=== PATIENT | male | born 1950 | race Caucasian/White ===

== ENCOUNTER 2017-01-11 07:30 | Inpatient (IN) | payer MEDICARE, BC ==
[~2017-01-11 07:30] MED LIST: Bisacodyl 5 MG Tab PO PRN; Cyclobenzaprine 10 MG Tab PO PRN; Ketorolac 15 MG/ML SDV IVPUSH PRN; Lactated Ringers 1,000 ML IV SCH; Lidocaine 1%/Sod Bicarbonate in NS 8.4% 1 ML Syringe IV PRN; Magnesium Hydroxide 400 MG/5 ML Susp 30 ML Cup PO PRN; Morphine 2 MG/ML Syringe IVPUSH PRN; Naloxone 0.4 MG/ML SDV IVPUSH PRN; Ondansetron 4 MG/2 ML SDV IVPUSH PRN; Sennosides 8.6 MG Tab PO PRN; Sodium Chloride 0.9% 10 ML Syringe FLUSH PRN; diphenhydrAMINE 50 MG/ML SDV IVPUSH PRN
[2017-01-11] MEDS ORDERED: ceFAZolin 1 GM Vial ONE ×3 (10:24→11:45)
[2017-01-11] MEDS ORDERED: Iodine/Sodium Iodide 2% Tincture 30 ML Bottle ONE (11:21)
[2017-01-11] MEDS ORDERED: Vancomycin 1 GM SDV ONE (11:21)
[2017-01-11] MEDS ORDERED: Bupivacaine 0.25% 30 ML SDV ONE (11:21)
[2017-01-11] MEDS ORDERED: Ondansetron 4 MG/2 ML SDV ONE (11:45)
[2017-01-11] MEDS ORDERED: Phenylephrine/Normal Saline 100 MCG/ML 10 ML Syringe ONE (11:45)
[2017-01-11] MEDS ORDERED: Lactated Ringers 2,000 ML ONE (11:45)
[2017-01-11] MEDS ORDERED: Propofol 200 MG/20 ML SDV ONE ×2 (11:45→14:57)
[2017-01-11] MEDS ORDERED: fentaNYL 100 MCG/2 ML SDV ONE (11:45)
[2017-01-11] MEDS ORDERED: Ketamine 500 mg/10 ML MDV ONE (11:46)
[2017-01-11] MEDS ORDERED: Midazolam 1 MG/ML 2 ML SDV ONE ×2 (11:46→15:25)
[2017-01-11] MEDS ORDERED: Morphine PF 10 MG/10 ML SDV ONE (11:48)
--- NOTE | 2017-01-11 12:26 | PCM.PREANE ---
Preanesthetic Assessment - Anesthesia/Transfusion/Family Hx Anesthesia History: Prior Anesthesia Without Reaction Family History of Anesthesia Reaction: No Transfusion History: No Prior Transfusion(s) Intubation History: Unknown - Review of Systems General: No Symptoms Pulmonary: No Symptoms (Smoker: pipe) Cardiovascular: No Symptoms (History of HTN, Heart catheterization in 2007, no stents placed.), Lightheadedness (with postural changes.) Gastrointestinal: No Symptoms Neurological: No Symptoms Other: Reports: Easy Bruising, Sinus Problem (hayfever) - Physical Assessment NPO Status Date: 01/11/17 NPO Status Time: 07:00 Pulse: 58 O2 Sat by Pulse Oximetry: 97 Respiratory Rate: 17 Blood Pressure: 137/89 Temperature: 36.6 C Vital Signs: Last Vital Signs Temp 36.6 C 01/11/17 10:42 Pulse 58 L 01/11/17 10:42 Resp 17 01/11/17 10:42 BP 137/89 01/11/17 10:42 Pulse Ox 97 01/11/17 10:42 Height: 1.8 m Weight: 82.554 kg ASA Class: 2 Mental Status: Alert & Oriented x3 Airway Class: Mallampati = 2 Dentition: Reports: Normal Dentition, Missing Tooth/Teeth, Caries Thyro-Mental Finger Breadths: 3 Mouth Opening Finger Breadths: 3 ROM/Head Extension: Full Lungs: Clear to Auscultation, Normal Respiratory Effort Cardiovascular: Regular Rate, Regular Rhythm, No Murmurs - Lab Values: MRSA screen negative All lab values reviewed and noted and within acceptable ranges to proceed with scheduled procedure. - Imaging/EKG Impressions: EKG: SB rate=49, incomplete RBBB, and LAFB, abnormal R wave progression, nonspecific T wave abnormalities.. CXR: Slight scarring in the lung bases, otherwise negative chest. - Allergies Allergies/Adverse Reactions: Allergies Allergy/AdvReac Type Severity Reaction Status Date / Time Sulfa (Sulfonamide Allergy Hives Verified 01/11/17 11:54 Antibiotics) - Anesthesia Plan Pre-Op Medication Ordered: Beta Alva Beta Alva: Metoprolol Med Last Dose Date: 01/11/17 Med Last Dose Time: 07:00 - Acknowledgements Anesthesia Type Planned: Spinal Pt an Appropriate Candidate for the Planned Anesthesia: Yes Alternatives and Risks of Anesthesia Discussed w Pt/Guardian: Yes Pt/Guardian Understands and Agrees with Anesthesia Plan: Yes PreAnesthesia Questionnaire Cardiovascular History: Reports: Hypertension Other Cardiovascular History: Hyperlipidemia Other Gastrointestinal History: Colon Polyps Genitourinary History: Reports: Renal Calculus Musculoskeletal History: Reports: Other (See Below) Other Musculoskeletal History: Left Hip Pain Neurological History: Reports: Other (See Below) Other Neuro History: Lightheadedness Psychiatric History: Reports: Anxiety, Depression - Past Surgical History HEENT Surgical History: Reports: Tonsillectomy Cardiovascular Surgical History: Reports: Other (See Below) Other Cardiovascular Surgeries/Procedures: Cardiac Cath Left GI Surgical History: Reports: Colonoscopy, EGD Other GI Surgeries/Procedures: Hernia Repair Male Surgical History: Reports: Other (See Below) Other Male Surgeries/Procedures: Uteroscopy Musculoskeletal Surgical History: Reports: Other (See Below) Other Musculoskeletal Surgeries/Procedures:: Back surgery (x2) and left knee surgery - SUBSTANCE USE Smoking Status *Q: Current Every Day Smoker Tobacco Use Within Last Twelve Months: Pipe Days Per Week of Alcohol Use: 0 Recreational Drug Use History: No - HOME MEDS Home Medications: Home Meds Acetaminophen [Tylenol] 325 mg PO ASDIRECTED PRN 01/08/17 [History] Losartan/Hydrochlorothiazide [Hyzaar 100-12.5 Tablet] 1 tab PO DAILY 01/08/17 [ History] Metoprolol Succinate [Toprol XL] 50 mg PO QAM 01/08/17 [History] Naproxen Sodium [Aleve] 220 mg PO ASDIRECTED PRN 01/08/17 [History] Pravastatin Sodium [Pravachol] 20 mg PO DAILY 01/08/17 [History] Varenicline Tartrate [Chantix] 01/08/17 [History] amLODIPine [Norvasc] 10 mg PO DAILY 01/08/17 [History] - CURRENT (IN HOUSE) MEDS Current Meds: Current Medications Aspirin (Ecotrin) 325 mg PO BID BRIGETTE Bisacodyl (Dulcolax) 5 mg PO DAILY PRN PRN Reason: Constipation Cyclobenzaprine HCl (Flexeril) 10 mg PO TID PRN PRN Reason: Spasms Diphenhydramine HCl (Benadryl) 25 mg IVPUSH Q4H PRN PRN Reason: Nausea Docusate Sodium (Colace) 100 mg PO BID BRIGETTE Famotidine (Pepcid) 20 mg PO Q12H [place]TE Lactated Ringer's (Ringers, Lactated) 1,000 mls @ 125 mls/hr IV ASDIRECTED [facility] Stop: 01/11/17 18:00 Last Admin: 01/11/17 11:05 Dose: 125 mls/hr Cefazolin Sodium/Dextrose 2 gm (/ Premix) 50 mls @ 100 mls/hr IV Q8H [facility] Stop: 01/12/17 10:59 Ketorolac Tromethamine (Toradol) 15 mg IVPUSH Q6H PRN PRN Reason: Pain Lidocaine/Sodium Bicarbonate (Buffered Lidocaine 1% In Ns 8.4%) 0.25 ml IV ONETIME PRN PRN Reason: Prior to IV Start Stop: 01/11/17 18:00 Last Admin: 01/11/17 11:05 Dose: 0.25 ml Magnesium Hydroxide (Milk Of Magnesia) 30 ml PO BID PRN PRN Reason: Constipation Morphine Sulfate (Morphine) 2 mg IVPUSH Q2H PRN PRN Reason: Breakthrough Pain Naloxone HCl (Narcan) 0.1 mg IVPUSH Q5M PRN PRN Reason: Oversedation Ondansetron HCl (Zofran) 4 mg IVPUSH Q6H PRN PRN Reason: Nausea/Vomiting Oxycodone/Acetaminophen (Percocet 325-5 Mg) 1 - 2 tab PO Q4H PRN PRN Reason: Pain Senna (Senna) 8.6 mg PO BID PRN PRN Reason: Constipation Sodium Chloride (Saline Flush) 10 ml FLUSH ASDIRECTED PRN PRN Reason: Keep Vein Open Stop: 01/11/17 18:00 Discontinued Medications Bupivacaine HCl (Marcaine 0.25%) Confirm Administered Dose 30 ml .ROUTE .STK- MED ONE Stop: 01/11/17 11:22 Cefazolin Sodium (Ancef) Confirm Administered Dose 2 gm .ROUTE .STK-MED ONE Stop: 01/11/17 10:25 Cefazolin Sodium (Ancef) Confirm Administered Dose 1 gm .ROUTE .STK-MED ONE Stop: 01/11/17 11:46 Cefazolin Sodium (Ancef) Confirm Administered Dose 2 gm .ROUTE .STK-MED ONE Stop: 01/11/17 11:22 Morphine Sulfate 8 mg/Epinephrine HCl 0.3 mg/Cefuroxime Sodium 750 mg/Ketorolac Tromethamine 30 mg/Sodium Chloride 27.9 ml 0 mg .XX ONETIME ONE Stop: 01/11/17 06:46 Fentanyl (Sublimaze) Confirm Administered Dose 100 mcg .ROUTE .STK-MED ONE Stop: 01/11/17 11:46 Lidocaine HCl (Xylocaine-Mpf 1%) Confirm Administered Dose 10 mls @ as directed .ROUTE .STK-MED ONE Stop: 01/11/17 11:46 Lactated Ringer's (Ringers, Lactated) Confirm Administered Dose 2,000 mls @ as directed .ROUTE .STK-MED ONE Stop: 01/11/17 11:46 Iodine (Iodine 2% Mild Tincture) Confirm Administered Dose 30 ml .ROUTE .STK- MED ONE Stop: 01/11/17 11:22 Ketamine HCl (Ketalar) Confirm Administered Dose 500 mg .ROUTE .STK-MED ONE Stop: 01/11/17 11:47 Midazolam HCl (Versed 1 Mg/Ml) Confirm Administered Dose 2 mg .ROUTE .STK-MED ONE Stop: 01/11/17 11:47 Morphine Sulfate (Duramorph Pf) Confirm Administered Dose 10 mg .ROUTE .STK-MED ONE Stop: 01/11/17 11:49 Ondansetron HCl (Zofran) Confirm Administered Dose 4 mg .ROUTE .STK-MED ONE Stop: 01/11/17 11:46 Phenylephrine HCl (Phenylephrine In Ns 100 Mcg/Ml) Confirm Administered Dose 1 mg .ROUTE .STK-MED ONE Stop: 01/11/17 11:46 Propofol (Diprivan 20 Ml) Confirm Administered Dose 400 mg .ROUTE .STK-MED ONE Stop: 01/11/17 11:46 Tranexamic Acid (Cyklokapron) Confirm Administered Dose 1,000 mg .ROUTE .STK- MED ONE Stop: 01/11/17 11:21 Vancomycin HCl (Vancomycin) Confirm Administered Dose 1 gm .ROUTE .STK-MED ONE Stop: 01/11/17 11:22
[2017-01-11] MEDS: Scopolamine 1.5 MG Transdermal Patch TRDERM ONE ×2 (12:54→12:59)
[2017-01-11] MEDS ORDERED: diphenhydrAMINE 50 MG/ML SDV IVPUSH PRN (14:13)
[2017-01-11] MEDS ORDERED: Ondansetron 4 MG/2 ML SDV IVPUSH PRN (14:13)
[2017-01-11] MEDS ORDERED: ePHEDrine 50 MG/ML SDV IVPUSH PRN (14:13)
[2017-01-11] MEDS ORDERED: fentaNYL 100 MCG/2 ML SDV IVPUSH PRN (14:13)
[2017-01-11] MEDS ORDERED: HYDROmorphone 0.5 MG/0.5 ML Syringe IVPUSH PRN (14:13)
[2017-01-11] MEDS ORDERED: Phenylephrine 1 MG in Sodium Chloride 0.9% 10 ML IV SCH (14:15)
[2017-01-11] MEDS: Morphine 8 MG, EPINEPHrine 0.3 MG, Cefuroxime 750 MG, Ketorolac 30 MG, Sodium Chloride ... ONE ×5 (15:13)
--- NOTE | 2017-01-11 15:48 | PCM.POSTAN ---
POST ANESTHESIA ASSESSMENT - MENTAL STATUS Mental Status: Alert - VITAL SIGNS Pulse Rate: 54 SaO2: 92 Resp Rate: 14 Blood Pressure: 93/62 Temperature: 36.4 C - RESPIRATORY Respiratory Status: Respiratory Rate WNL, Airway Patent, O2 Saturation Stable, Supplemental Oxygen - CARDIOVASCULAR CV Status: Pulse Rate WNL, Blood Pressure Stable - GASTROINTESTINAL GI Status: No Symptoms - POST OP HYDRATION Hydration Status: Adequate & Stable
[2017-01-11] MEDS: ceFAZolin 2 GM in Premix Bag 1 BAG IV SCH (18:20)
--- NOTE | 2017-01-11 20:27 | PCM.CONS ---
H&P History of Present Illness - General Date of Service: 01/11/17 Admit Problem/Dx: Admission Diagnosis/Problem Admission Diagnosis/Problem Osteoarthritis of hip Source of Information: Patient, Old Records, Provider, RN, RN Notes Reviewed, Other (Surgical notes ) History Limitations: Reports: No Limitations - History of Present Illness Initial Comments - Free Text/Narative: Stephen Payne is an 66 yo male patient of Dr. Lipscomb who is post-operative day 0 of left ANITHA. Hospital medicine was consulted for post-operative medical care. At this time he is resting comfortably. Pain is controlled. He denies any chest pain, shortness of breath, palpitations, nausea, or vomiting. He carries a history of: HTN, Heart catheterization in 2007 w/o stent placement, HLD, anxiety , depression. He is a current everyday pipe smoker. He is a full code. His primary care provider is Dr. Smith at [facility] in [place]. Left Hip Pain Score (Numeric/FACES): 4 - Related Data Allergies/Adverse Reactions: Allergies Allergy/AdvReac Type Severity Reaction Status Date / Time Sulfa (Sulfonamide Allergy Hives Verified 01/11/17 11:54 Antibiotics) Home Medications: Home Meds Acetaminophen [Tylenol] 325 mg PO ASDIRECTED PRN 01/08/17 [History] Losartan/Hydrochlorothiazide [Hyzaar 100-12.5 Tablet] 1 tab PO DAILY 01/08/17 [ History] Metoprolol Succinate [Toprol XL] 50 mg PO QAM 01/08/17 [History] Naproxen Sodium [Aleve] 220 mg PO ASDIRECTED PRN 01/08/17 [History] Pravastatin Sodium [Pravachol] 20 mg PO DAILY 01/08/17 [History] Varenicline Tartrate [Chantix] 01/08/17 [History] amLODIPine [Norvasc] 10 mg PO DAILY 01/08/17 [History] Past Medical History HEENT History: Reports: Impaired Vision Other HEENT History: wears reading glasses Cardiovascular History: Reports: Hypertension Other Cardiovascular History: Hyperlipidemia Other Gastrointestinal History: Colon Polyps Genitourinary History: Reports: Renal Calculus Musculoskeletal History: Reports: Other (See Below) Other Musculoskeletal History: Left Hip Pain Neurological History: Reports: Other (See Below) Other Neuro History: Lightheadedness Psychiatric History: Reports: Anxiety, Depression - Infectious Disease History Infectious Disease History: Reports: Chicken Pox, Measles - Past Surgical History HEENT Surgical History: Reports: Tonsillectomy Cardiovascular Surgical History: Reports: Other (See Below) Other Cardiovascular Surgeries/Procedures: Cardiac Cath Left GI Surgical History: Reports: Colonoscopy, EGD Other GI Surgeries/Procedures: Hernia Repair Male Surgical History: Reports: Other (See Below) Other Male Surgeries/Procedures: Uteroscopy Musculoskeletal Surgical History: Reports: Other (See Below) Other Musculoskeletal Surgeries/Procedures:: Back surgery (x2) and left knee surgery Social & Family History - Family History Family Medical History: Noncontributory - Tobacco Use Smoking Status *Q: Current Every Day Smoker Years of Tobacco use: 45 Packs/Tins Daily: 0 Used Tobacco, but Quit: No Tobacco Use Comment: Patient states he is "trying to quit" and is using Chantix in addition to cutting back on smoking his pipe. - Caffeine Use Caffeine Use: Reports: Coffee, Soda Caffeine Use Comment: one cup of coffee per day - Alcohol Use Days Per Week of Alcohol Use: 0 - Recreational Drug Use Recreational Drug Use: No Drug Use in Last 12 Months: No H&P Review of Systems - Review of Systems: Review Of Systems: See Below General: Reports: No Symptoms HEENT: Reports: No Symptoms Pulmonary: Reports: No Symptoms Cardiovascular: Reports: No Symptoms Gastrointestinal: Reports: No Symptoms Genitourinary: Reports: No Symptoms Musculoskeletal: Reports: Joint Pain (Left hip). Denies: Neck Pain, Shoulder Pain, Arm Pain, Leg Pain, Foot Pain, Joint Swelling Skin: Reports: No Symptoms Psychiatric: Reports: No Symptoms Neurological: Reports: No Symptoms Hematologic/Lymphatic: Reports: No Symptoms Immunologic: Reports: No Symptoms Exam - Exam Exam: See Below - Vital Signs Vital Signs: Last Vital Signs Temp 97.0 F 01/11/17 16:45 Pulse 54 L 01/11/17 15:48 Resp 14 01/11/17 16:45 BP 101/61 01/11/17 16:45 Pulse Ox 100 01/11/17 17:14 Weight: 182 lb - Exam Quality Assessment: Urinary Catheter, DVT Prophylaxis General: Alert, Oriented, Cooperative. No: Mild Distress HEENT: Conjunctiva Clear, EACs Clear, EOMI, Hearing Intact, Mucosa Moist & [place] , Nares Patent, Normal Nasal Septum, Posterior Pharynx Clear, PERRLA Neck: Supple, Trachea Midline. No: JVD, Thyromegaly Lungs: Clear to Auscultation, Normal Respiratory Effort Cardiovascular: Regular Rate, Regular Rhythm GI/Abdominal Exam: Normal Bowel Sounds, Soft, Non-Tender, No Organomegaly, No Distention, No Abnormal Bruit, No Mass, Pelvis Stable (Male) Exam: Deferred Rectal (Males) Exam: Deferred Back Exam: Normal Inspection, Full Range of Motion, NT Extremities: No Pedal Edema, Normal Capillary Refill, Limited Range of Motion, Other (Wedge in place between legs. Cooling pack in place. RAÚL bandage on left leg which is dry and intact ) Peripheral Pulses: 2+: Radial (L), Radial (R), Posterior Tibial (L), Posterior Tibial (R), Dorsalis Pedis (L), Dorsalis Pedis (R) Skin: Warm, Dry, Intact Neurological: Cranial Nerves Intact (grossly ) Neuro Extensive - Mental Status: Alert, Oriented x3, Normal Mood/Affect, Normal Cognition Neuro Extensive - Motor, Sensory, Reflexes: CN II-XII Intact (grossly ) Psychiatric: Alert, Normal Affect, Normal Mood - Patient Data Lab Results Last 24 hrs: Laboratory Results - last 24 hr 01/11/17 Range/Units 12:14 Blood Type O POSITIVE Gel Antibody Screen Negative Consult PN Assessment/Plan POD#: 0 Procedures: Procedures ASSAY OF CREATININE (07/03/16) DRAIN/INJ JOINT/BURSA W/O US (09/29/16) DXA BONE DENSITY AXIAL (12/30/16) MRI LUMBAR SPINE W/O & W/DYE (07/03/16) ROUTINE VENIPUNCTURE (07/03/16) TISSUE EXAM BY PATHOLOGIST (08/07/13) X-RAY EXAM L-2 SPINE 4/>VWS (07/03/16) X-RAY EXAM OF PELVIS (07/03/16) X-RAY EXAM OF SKULL (07/03/16) (1) S/P total hip arthroplasty SNOMED Code(s): 610617397007 Code(s): Z96.649 - PRESENCE OF UNSPECIFIED ARTIFICIAL HIP JOINT Priority: High Current Visit: Yes Qualifiers: Laterality: left Qualified Code(s): Z96.642 - Presence of left artificial hip joint (2) Osteoarthritis SNOMED Code(s): 593648138 Code(s): M19.90 - UNSPECIFIED OSTEOARTHRITIS, UNSPECIFIED SITE Priority: High Current Visit: Yes Qualifiers: Osteoarthritis location: hip Osteoarthritis type: primary Laterality: left Qualified Code(s): M16.12 - Unilateral primary osteoarthritis, left hip (3) HTN (hypertension) SNOMED Code(s): 18343304 Code(s): I10 - ESSENTIAL (PRIMARY) HYPERTENSION Priority: Low Current Visit: No Qualifiers: Hypertension type: unspecified Qualified Code(s): I10 - Essential (primary ) hypertension (4) HLD (hyperlipidemia) SNOMED Code(s): 56672728 Code(s): E78.5 - HYPERLIPIDEMIA, UNSPECIFIED Priority: Low Current Visit : No Qualifiers: Hyperlipidemia type: unspecified Qualified Code(s): E78.5 - Hyperlipidemia , unspecified (5) Anxiety SNOMED Code(s): 92252575 Code(s): F41.9 - ANXIETY DISORDER, UNSPECIFIED Priority: Low Current Visit: No (6) Depression SNOMED Code(s): 36531320 Code(s): F32.9 - MAJOR DEPRESSIVE DISORDER, SINGLE EPISODE, UNSPECIFIED Priority: Low Current Visit: No Qualifiers: Depression Type: other depression Qualified Code(s): F32.89 - Other specified depressive episodes (7) Tobacco use disorder SNOMED Code(s): 814388439 Code(s): F17.200 - NICOTINE DEPENDENCE, UNSPECIFIED, UNCOMPLICATED Priority : Medium Current Visit: Yes Problem List Initiated/Reviewed/Updated: Yes Plan: I/P: Acute: S/P left total hip arthroplasty - post-operative day 0 -DVT prophylaxis and pain management per primary care team -PT/OT -IS/RT -Monitor oxygen saturation -Titrate oxygen as needed -Vital signs stable Osteoarthritis of left hip -Pain management per primary care team Post-operative puritis -Generalized -Benadryl as ordered Chronic: HTN - stable Hx/o heart catheterization in 2007 w/o stent placement HLD Anxiety - stable Depression - stable Tobacco use disorder - Chantix, Counseling on importance of quitting Plan: SW/CM for discharge planning GI prophylaxis Home medications as indicated Other orders as listed above Routine AM labs He is a full code. His PCP is Dr. Smith at [facility] here in [place] Thank you for allowing us to participate in the care of this patient!! Requesting Provider: Dr. Lipscomb Date Consult Requested: 01/11/17 Reason for Consult: Post-operative medical care Patient History Reviewed: Yes Admission H&P Reviewed: Yes
[2017-01-11] MEDS: Famotidine 20 MG Tab PO SCH (20:51)
[2017-01-11] MEDS: Docusate Sodium 100 MG Cap PO SCH (20:51)
[2017-01-11] MEDS: diphenhydrAMINE 50 MG/ML SDV IVPUSH PRN (20:51)
[2017-01-11] MEDS: Acetaminophen/oxyCODONE 325-5 MG Tab PO PRN (23:49)
[2017-01-12] MEDS: ceFAZolin 2 GM in Premix Bag 1 BAG IV SCH ×2 (02:24→10:14)
[2017-01-12] MEDS: Morphine 8 MG, EPINEPHrine 0.3 MG, Cefuroxime 750 MG, Ketorolac 30 MG, Sodium Chloride ... ONE ×5 (05:56)
[2017-01-12] MEDS: Acetaminophen/oxyCODONE 325-5 MG Tab PO PRN ×2 (06:49→15:29)
[2017-01-12] MEDS: diphenhydrAMINE 50 MG/ML SDV IVPUSH PRN (06:58)
--- NOTE | 2017-01-12 07:28 | CR ---
Pelvis and left hip: AP view of the pelvis was obtained as well as AP and lateral views of the left hip. Comparison: Previous pelvis AP exam of 07/03/16. Left hip prosthesis is seen. Components are aligned. Soft tissue air is noted from the surgical procedure. Underlying bony structures are intact. Impression: 1. Recently placed left hip prosthesis. Nothing acute is otherwise seen. Diagnostic code #2
[2017-01-12] MEDS ORDERED: Metoprolol Succinate 50 MG Tab.ER PO SCH (08:00)
[2017-01-12] MEDS: Famotidine 20 MG Tab PO SCH (08:44)
[2017-01-12] MEDS: Docusate Sodium 100 MG Cap PO SCH (08:45)
[2017-01-12] MEDS ORDERED: amLODIPine 10 MG Tab PO SCH (09:00)
[2017-01-12] MEDS ORDERED: HYDROCHLOROTHIAZIDE T PO SCH (09:00)
[2017-01-12] MEDS ORDERED: Hydrochlorothiazide 12.5 MG Cap PO SCH (09:00)
[2017-01-12] MEDS ORDERED: LOSARTAN PO SCH (09:00)
[2017-01-12] MEDS ORDERED: Aspirin 325 MG Tab.EC PO SCH (09:00)
[2017-01-12] MEDS ORDERED: Losartan 100 MG Tab PO SCH (09:00)
[2017-01-12] MEDS ORDERED: Simvastatin 10 MG Tab PO SCH ×2 (09:00→21:00)
[2017-01-12] MEDS ORDERED: [UNRECOGNIZED DRUG - OTHER] PO SCH (09:00)
--- NOTE | 2017-01-12 11:08 | PCM.CONSN ---
- General Info Date of Service: 01/12/17 Functional Status: Reports: Pain Controlled - Review of Systems General: Reports: No Symptoms HEENT: Reports: No Symptoms Pulmonary: Reports: No Symptoms Cardiovascular: Reports: No Symptoms Gastrointestinal: Reports: No Symptoms Genitourinary: Reports: No Symptoms Musculoskeletal: Reports: No Symptoms Skin: Reports: No Symptoms Neurological: Reports: No Symptoms Psychiatric: Reports: No Symptoms - Patient Data Vitals - Most Recent: Last Vital Signs Temp 98.2 F 01/12/17 08:24 Pulse 63 01/12/17 08:44 Resp 16 01/12/17 08:24 BP 121/73 01/12/17 08:44 Pulse Ox 95 01/12/17 08:24 Weight - Most Recent: 193 lb 4.8 oz I&O - Last 24 Hours: Intake & Output 01/11/17 01/12/17 01/12/17 22:59 06:59 14:59 Intake Total 760 1150 Output Total 200 Balance 560 1150 Lab Results Last 24 Hours: Laboratory Results - last 24 hr 01/11/17 01/12/17 01/12/17 Range/Units 12:14 05:43 05:43 WBC 10.54 H (4.23-9.07) K/mm3 RBC 4.23 L (4.63-6.08) M/mm3 Hgb 12.4 L (13.7-17.5) gm/L Hct 37.5 L (40.1-51.0) % MCV 88.7 (79.0-92.2) fl MCH 29.3 (25.7-32.2) pg MCHC 33.1 (32.2-35.5) g/dl RDW Std Deviation 45.4 H (35.1-43.9) fL Plt Count 207 (163-337) K/mm3 MPV 9.0 L (9.4-12.3) fl Sodium 140 (136-145) mEq/L Potassium 3.6 (3.5-5.1) mEq/L Chloride 106 (98-107) mEq/L Carbon Dioxide 25 (21-32) mEq/L Anion Gap 12.6 (5-15) BUN 20 H (7-18) mg/dL Creatinine 1.2 (0.7-1.3) mg/dL Est Cr Clr Drug Dosing 62.75 mL/min Estimated GFR (MDRD) > 60 (>60) mL/min BUN/Creatinine Ratio 16.7 (14-18) Glucose 90 (80-115) mg/dL Calcium 8.3 L (8.5-10.1) mg/dL Total Bilirubin 0.2 (0.2-1.0) mg/dL AST 32 (15-37) U/L ALT 22 (16-63) U/L Alkaline Phosphatase 70 (46-116) U/L Total Protein 5.6 L (6.4-8.2) g/dl Albumin 2.6 L (3.4-5.0) g/dl Globulin 3.0 gm/dL Albumin/Globulin Ratio 0.9 L (1-2) Blood Type O POSITIVE Gel Antibody Screen Negative Med Orders - Current: Current Medications Amlodipine Besylate (Norvasc) 10 mg PO DAILY [facility] Last Admin: 01/12/17 08:43 Dose: 10 mg Aspirin (Ecotrin) 325 mg PO BID [facility] Last Admin: 01/12/17 08:43 Dose: 325 mg Bisacodyl (Dulcolax) 5 mg PO DAILY PRN PRN Reason: Constipation Cyclobenzaprine HCl (Flexeril) 10 mg PO TID PRN PRN Reason: Spasms Last Admin: 01/11/17 23:52 Dose: 10 mg Diphenhydramine HCl (Benadryl) 25 mg IVPUSH Q6H PRN PRN Reason: Itching Last Admin: 01/12/17 06:58 Dose: 25 mg Docusate Sodium (Colace) 100 mg PO BID [facility] Last Admin: 01/12/17 08:45 Dose: 100 mg Famotidine (Pepcid) 20 mg PO Q12H [facility] Last Admin: 01/12/17 08:44 Dose: 20 mg Hydrochlorothiazide (Hydrochlorothiazide) 12.5 mg PO DAILY [facility] Last Admin: 01/12/17 08:44 Dose: 12.5 mg Ketorolac Tromethamine (Toradol) 15 mg IVPUSH Q6H PRN PRN Reason: Pain Losartan Potassium (Cozaar) 100 mg PO DAILY [facility] Last Admin: 01/12/17 08:44 Dose: 100 mg Magnesium Hydroxide (Milk Of Magnesia) 30 ml PO BID PRN PRN Reason: Constipation Metoprolol Succinate (Toprol Xl) 50 mg PO QAM [facility] Last Admin: 01/12/17 08:44 Dose: 50 mg Morphine Sulfate (Morphine) 2 mg IVPUSH Q2H PRN PRN Reason: Breakthrough Pain Naloxone HCl (Narcan) 0.1 mg IVPUSH Q5M PRN PRN Reason: Oversedation Ondansetron HCl (Zofran) 4 mg IVPUSH Q6H PRN PRN Reason: Nausea/Vomiting Oxycodone/Acetaminophen (Percocet 325-5 Mg) 1 - 2 tab PO Q4H PRN PRN Reason: Pain Last Admin: 01/12/17 06:49 Dose: 2 tab Senna (Senna) 8.6 mg PO BID PRN PRN Reason: Constipation Simvastatin (Zocor) 10 mg PO DAILY [facility] Last Admin: 01/12/17 08:44 Dose: 10 mg Discontinued Medications Bupivacaine HCl (Marcaine 0.25%) Confirm Administered Dose 30 ml .ROUTE .STK- MED ONE Stop: 01/11/17 11:22 Last Admin: 01/11/17 15:14 Dose: 30 ml Cefazolin Sodium (Ancef) Confirm Administered Dose 2 gm .ROUTE .STK-MED ONE Stop: 01/11/17 10:25 Last Admin: 01/11/17 15:10 Dose: 2 gm Cefazolin Sodium (Ancef) Confirm Administered Dose 1 gm .ROUTE .STK-MED ONE Stop: 01/11/17 11:46 Cefazolin Sodium (Ancef) Confirm Administered Dose 2 gm .ROUTE .STK-MED ONE Stop: 01/11/17 11:22 Morphine Sulfate 8 mg/Epinephrine HCl 0.3 mg/Cefuroxime Sodium 750 mg/Ketorolac Tromethamine 30 mg/Sodium Chloride 27.9 ml 0 mg .XX ONETIME ONE Stop: 01/11/17 06:46 Last Admin: 01/12/17 05:56 Dose: Not Given Diphenhydramine HCl (Benadryl) 25 mg IVPUSH Q4H PRN PRN Reason: Nausea Diphenhydramine HCl (Benadryl) 25 mg IVPUSH Q6H PRN PRN Reason: pruritis Stop: 01/11/17 18:00 Ephedrine Sulfate (Ephedrine Sulfate) 5 mg IVPUSH ASDIRECTED PRN PRN Reason: Hypotension Stop: 01/11/17 18:00 Fentanyl (Sublimaze) Confirm Administered Dose 100 mcg .ROUTE .STK-MED ONE Stop: 01/11/17 11:46 Fentanyl (Sublimaze) 50 mcg IVPUSH Q5M PRN PRN Reason: Pain Stop: 01/11/17 14:14 Hydromorphone HCl (Dilaudid) 0.5 mg IVPUSH Q15M PRN PRN Reason: severe pain Stop: 01/11/17 14:14 Lactated Ringer's (Ringers, Lactated) 1,000 mls @ 125 mls/hr IV ASDIRECTED [facility] Stop: 01/11/17 18:00 Last Admin: 01/11/17 11:05 Dose: 125 mls/hr Cefazolin Sodium/Dextrose 2 gm (/ Premix) 50 mls @ 100 mls/hr IV Q8H [facility] Stop: 01/12/17 10:59 Last Admin: 01/12/17 10:14 Dose: 100 mls/hr Lidocaine HCl (Xylocaine-Mpf 1%) Confirm Administered Dose 10 mls @ as directed .ROUTE .STK-MED ONE Stop: 01/11/17 11:46 Lactated Ringer's (Ringers, Lactated) Confirm Administered Dose 2,000 mls @ as directed .ROUTE .STK-MED ONE Stop: 01/11/17 11:46 Phenylephrine HCl 1 mg/ Sodium (Chloride) 10.1 mls @ 1 mls/sec IV TITRATE [facility] PRN Reason: Protocol Stop: 01/11/17 23:00 Iodine (Iodine 2% Mild Tincture) Confirm Administered Dose 30 ml .ROUTE .STK- MED ONE Stop: 01/11/17 11:22 Last Admin: 01/11/17 15:08 Dose: 18 ml Ketamine HCl (Ketalar) Confirm Administered Dose 500 mg .ROUTE .STK-MED ONE Stop: 01/11/17 11:47 Lidocaine/Sodium Bicarbonate (Buffered Lidocaine 1% In Ns 8.4%) 0.25 ml IV ONETIME PRN PRN Reason: Prior to IV Start Stop: 01/11/17 18:00 Last Admin: 01/11/17 11:05 Dose: 0.25 ml Midazolam HCl (Versed 1 Mg/Ml) Confirm Administered Dose 2 mg .ROUTE .STK-MED ONE Stop: 01/11/17 11:47 Midazolam HCl (Versed 1 Mg/Ml) Confirm Administered Dose 2 mg .ROUTE .STK-MED ONE Stop: 01/11/17 15:26 Morphine Sulfate (Duramorph Pf) Confirm Administered Dose 10 mg .ROUTE .STK-MED ONE Stop: 01/11/17 11:49 Ondansetron HCl (Zofran) Confirm Administered Dose 4 mg .ROUTE .STK-MED ONE Stop: 01/11/17 11:46 Ondansetron HCl (Zofran) 4 mg IVPUSH ONETIME PRN PRN Reason: Nausea/Vomiting Stop: 01/11/17 23:00 Phenylephrine HCl (Phenylephrine In Ns 100 Mcg/Ml) Confirm Administered Dose 1 mg .ROUTE .STK-MED ONE Stop: 01/11/17 11:46 Propofol (Diprivan 20 Ml) Confirm Administered Dose 400 mg .ROUTE .STK-MED ONE Stop: 01/11/17 11:46 Propofol (Diprivan 20 Ml) Confirm Administered Dose 200 mg .ROUTE .STK-MED ONE Stop: 01/11/17 14:58 Scopolamine (Transderm-Scop) 1.5 mg TRDERM ONETIME ONE Stop: 01/11/17 12:37 Last Admin: 01/11/17 12:59 Dose: Not Given Sodium Chloride (Saline Flush) 10 ml FLUSH ASDIRECTED PRN PRN Reason: Keep Vein Open Stop: 01/11/17 18:00 Tranexamic Acid (Cyklokapron) Confirm Administered Dose 1,000 mg .ROUTE .STK- MED ONE Stop: 01/11/17 11:21 Last Admin: 01/11/17 15:15 Dose: 1,000 mg Vancomycin HCl (Vancomycin) Confirm Administered Dose 1 gm .ROUTE .STK-MED ONE Stop: 01/11/17 11:22 Last Admin: 01/11/17 15:15 Dose: 1 gm - Exam General: Alert, Oriented HEENT: Pupils Equal, Pupils Reactive, EOMI, Mucous Membr. Moist/[place] Neck: Supple Lungs: Clear to Auscultation, Normal Respiratory Effort Cardiovascular: Regular Rate, Regular Rhythm GI/Abdominal Exam: Normal Bowel Sounds, Soft, Non-Tender, No Organomegaly, No Distention, No Abnormal Bruit, No Mass, Pelvis Stable Extremities: Normal Inspection, Normal Range of Motion, Non-Tender, No Pedal Edema, Normal Capillary Refill Skin: Warm, Dry, Intact Neurological: No New Focal Deficit Psy/Mental Status: Alert, Normal Affect, Normal Mood Consult PN Assessment/Plan POD#: 1 Procedures: Procedures ASSAY OF CREATININE (07/03/16) DRAIN/INJ JOINT/BURSA W/O US (09/29/16) DXA BONE DENSITY AXIAL (12/30/16) MRI LUMBAR SPINE W/O & W/DYE (07/03/16) ROUTINE VENIPUNCTURE (07/03/16) TISSUE EXAM BY PATHOLOGIST (08/07/13) X-RAY EXAM L-2 SPINE 4/>VWS (07/03/16) X-RAY EXAM OF PELVIS (07/03/16) X-RAY EXAM OF SKULL (07/03/16) Problem List Initiated/Reviewed/Updated: Yes Plan: S/P left total hip arthroplasty - post-operative day 1 -DVT prophylaxis and pain management per primary care team -PT/OT -IS/RT -Monitor oxygen saturation -Titrate oxygen as needed -Vital signs stable Osteoarthritis of left hip -Pain management per primary care team Post-operative puritis -Generalized -Benadryl as ordered Chronic: HTN - stable Hx/o heart catheterization in 2007 w/o stent placement HLD Anxiety - stable Depression - stable Tobacco use disorder - Chantix, Counseling on importance of quitting Plan: WILL KEEP WATCHING BP while the pt here SW/CM for discharge planning Home medications as indicated Other orders as listed above Routine AM labs He is a full code. His PCP is Dr. Smith at [facility] here in [place] Thank you for allowing us to participate in the care of this patient!!
[2017-01-12] MEDS ORDERED: Calcium Carbonate 600 MG Tab PO SCH (11:30)
[2017-01-12] MEDS ORDERED: Cholecalciferol (Vitamin D3) 1,000 Unit Tab PO SCH (11:30)
--- NOTE | 2017-01-13 11:08 | PCM.SURGPN ---
- General Info Date of Service: 01/12/17 POD#: 1 Functional Status: Reports: Pain Controlled, Tolerating Diet, Ambulating, Urinating, Incentive Spirometry - Review of Systems Musculoskeletal: Reports: Other (The pt met inpatient therapy goals.) - Patient Data Vitals - Most Recent: Last Vital Signs Temp 98.6 F 01/12/17 11:50 Pulse 63 01/12/17 08:44 Resp 20 01/12/17 11:50 BP 116/67 01/12/17 11:50 Pulse Ox 96 01/12/17 11:50 Weight - Most Recent: 193 lb 4.8 oz I&O - Last 24 Hours: Intake & Output 01/12/17 01/13/17 01/13/17 22:59 06:59 14:59 Intake Total 320 Balance 320 Med Orders - Current: Current Medications Discontinued Medications Amlodipine Besylate (Norvasc) 10 mg PO DAILY [facility] Last Admin: 01/12/17 08:43 Dose: 10 mg Aspirin (Ecotrin) 325 mg PO BID [facility] Last Admin: 01/12/17 08:43 Dose: 325 mg Bisacodyl (Dulcolax) 5 mg PO DAILY PRN PRN Reason: Constipation Bupivacaine HCl (Marcaine 0.25%) Confirm Administered Dose 30 ml .ROUTE .STK- MED ONE Stop: 01/11/17 11:22 Last Admin: 01/11/17 15:14 Dose: 30 ml Calcium Carbonate/Glycine (Calcium Carbonate) 1,200 mg PO DAILY [facility] Last Admin: 01/12/17 11:52 Dose: 1,200 mg Cefazolin Sodium (Ancef) Confirm Administered Dose 2 gm .ROUTE .STK-MED ONE Stop: 01/11/17 10:25 Last Admin: 01/11/17 15:10 Dose: 2 gm Cefazolin Sodium (Ancef) Confirm Administered Dose 1 gm .ROUTE .STK-MED ONE Stop: 01/11/17 11:46 Cefazolin Sodium (Ancef) Confirm Administered Dose 2 gm .ROUTE .STK-MED ONE Stop: 01/11/17 11:22 Cholecalciferol (Vitamin D3) 5,000 units PO DAILY [facility] Last Admin: 01/12/17 11:51 Dose: 5,000 units Morphine Sulfate 8 mg/Epinephrine HCl 0.3 mg/Cefuroxime Sodium 750 mg/Ketorolac Tromethamine 30 mg/Sodium Chloride 27.9 ml 0 mg .XX ONETIME ONE Stop: 01/11/17 06:46 Last Admin: 01/12/17 05:56 Dose: Not Given Cyclobenzaprine HCl (Flexeril) 10 mg PO TID PRN PRN Reason: Spasms Last Admin: 01/11/17 23:52 Dose: 10 mg Diphenhydramine HCl (Benadryl) 25 mg IVPUSH Q4H PRN PRN Reason: Nausea Diphenhydramine HCl (Benadryl) 25 mg IVPUSH Q6H PRN PRN Reason: pruritis Stop: 01/11/17 18:00 Diphenhydramine HCl (Benadryl) 25 mg IVPUSH Q6H PRN PRN Reason: Itching Last Admin: 01/12/17 06:58 Dose: 25 mg Docusate Sodium (Colace) 100 mg PO BID [facility] Last Admin: 01/12/17 08:45 Dose: 100 mg Ephedrine Sulfate (Ephedrine Sulfate) 5 mg IVPUSH ASDIRECTED PRN PRN Reason: Hypotension Stop: 01/11/17 18:00 Famotidine (Pepcid) 20 mg PO Q12H [facility] Last Admin: 01/12/17 08:44 Dose: 20 mg Fentanyl (Sublimaze) Confirm Administered Dose 100 mcg .ROUTE .STK-MED ONE Stop: 01/11/17 11:46 Fentanyl (Sublimaze) 50 mcg IVPUSH Q5M PRN PRN Reason: Pain Stop: 01/11/17 14:14 Hydrochlorothiazide (Hydrochlorothiazide) 12.5 mg PO DAILY [facility] Last Admin: 01/12/17 08:44 Dose: 12.5 mg Hydromorphone HCl (Dilaudid) 0.5 mg IVPUSH Q15M PRN PRN Reason: severe pain Stop: 01/11/17 14:14 Lactated Ringer's (Ringers, Lactated) 1,000 mls @ 125 mls/hr IV ASDIRECTED [facility] Stop: 01/11/17 18:00 Last Admin: 01/11/17 11:05 Dose: 125 mls/hr Cefazolin Sodium/Dextrose 2 gm (/ Premix) 50 mls @ 100 mls/hr IV Q8H [facility] Stop: 01/12/17 10:59 Last Admin: 01/12/17 10:14 Dose: 100 mls/hr Lidocaine HCl (Xylocaine-Mpf 1%) Confirm Administered Dose 10 mls @ as directed .ROUTE .STK-MED ONE Stop: 01/11/17 11:46 Lactated Ringer's (Ringers, Lactated) Confirm Administered Dose 2,000 mls @ as directed .ROUTE .STK-MED ONE Stop: 01/11/17 11:46 Phenylephrine HCl 1 mg/ Sodium (Chloride) 10.1 mls @ 1 mls/sec IV TITRATE [facility] PRN Reason: Protocol Stop: 01/11/17 23:00 Iodine (Iodine 2% Mild Tincture) Confirm Administered Dose 30 ml .ROUTE .STK- MED ONE Stop: 01/11/17 11:22 Last Admin: 01/11/17 15:08 Dose: 18 ml Ketamine HCl (Ketalar) Confirm Administered Dose 500 mg .ROUTE .STK-MED ONE Stop: 01/11/17 11:47 Ketorolac Tromethamine (Toradol) 15 mg IVPUSH Q6H PRN PRN Reason: Pain Lidocaine/Sodium Bicarbonate (Buffered Lidocaine 1% In Ns 8.4%) 0.25 ml IV ONETIME PRN PRN Reason: Prior to IV Start Stop: 01/11/17 18:00 Last Admin: 01/11/17 11:05 Dose: 0.25 ml Losartan Potassium (Cozaar) 100 mg PO DAILY [facility] Last Admin: 01/12/17 08:44 Dose: 100 mg Magnesium Hydroxide (Milk Of Magnesia) 30 ml PO BID PRN PRN Reason: Constipation [facility]oprolol Succinate ([facility]l) [facility] [place] Last Admin: 01/12/17 08:44 Dose: 50 mg Midazolam HCl (Versed 1 Mg/Ml) Confirm Administered Dose 2 mg .ROUTE .STK-MED ONE Stop: 01/11/17 11:47 Midazolam HCl (Versed 1 Mg/Ml) Confirm Administered Dose 2 mg .ROUTE .STK-MED ONE Stop: 01/11/17 15:26 Morphine Sulfate (Morphine) 2 mg IVPUSH Q2H PRN PRN Reason: Breakthrough Pain Morphine Sulfate (Duramorph Pf) Confirm Administered Dose 10 mg .ROUTE .STK-MED ONE Stop: 01/11/17 11:49 Naloxone HCl (Narcan) 0.1 mg IVPUSH Q5M PRN PRN Reason: Oversedation Ondansetron HCl (Zofran) 4 mg IVPUSH Q6H PRN PRN Reason: Nausea/Vomiting Ondansetron HCl (Zofran) Confirm Administered Dose 4 mg .ROUTE .STK-MED ONE Stop: 01/11/17 11:46 Ondansetron HCl (Zofran) 4 mg IVPUSH ONETIME PRN PRN Reason: Nausea/Vomiting Stop: 01/11/17 23:00 Oxycodone/Acetaminophen (Percocet 325-5 Mg) 1 - 2 tab PO Q4H PRN PRN Reason: Pain Last Admin: 01/12/17 15:29 Dose: 2 tab Phenylephrine HCl (Phenylephrine In Ns 100 Mcg/Ml) Confirm Administered Dose 1 mg .ROUTE .STK-MED ONE Stop: 01/11/17 11:46 Propofol (Diprivan 20 Ml) Confirm Administered Dose 400 mg .ROUTE .STK-MED ONE Stop: 01/11/17 11:46 Propofol (Diprivan 20 Ml) Confirm Administered Dose 200 mg .ROUTE .STK-MED ONE Stop: 01/11/17 14:58 Scopolamine (Transderm-Scop) 1.5 mg TRDERM ONETIME ONE Stop: 01/11/17 12:37 Last Admin: 01/11/17 12:59 Dose: Not Given Senna (Senna) 8.6 mg PO BID PRN PRN Reason: Constipation Simvastatin (Zocor) 10 mg PO DAILY [facility] Last Admin: 01/12/17 08:44 Dose: 10 mg Simvastatin (Zocor) 10 mg PO BEDTIME [facility] Sodium Chloride (Saline Flush) 10 ml FLUSH ASDIRECTED PRN PRN Reason: Keep Vein Open Stop: 01/11/17 18:00 Tranexamic Acid (Cyklokapron) Confirm Administered Dose 1,000 mg .ROUTE .STK- MED ONE Stop: 01/11/17 11:21 Last Admin: 01/11/17 15:15 Dose: 1,000 mg Vancomycin HCl (Vancomycin) Confirm Administered Dose 1 gm .ROUTE .STK-MED ONE Stop: 01/11/17 11:22 Last Admin: 01/11/17 15:15 Dose: 1 gm - Exam Wound/Incisions: Dressing Dry and Intact General: Alert, Cooperative, No Acute Distress Lungs: Normal Respiratory Effort Extremities: Other (Left thigh soft. Elizabeth's negative and NVS intact for BLE.) - Problem List Review Problem List Initiated/Reviewed/Updated: Yes - My Orders Last 24 Hours: Active Orders 24 hr Category Date Time Status Ready for Discharge [RC] PER UNIT ROUTINE Care 01/12/17 12:27 Active - Assessment Assessment (Free Text/Narrative):: POD#1 - left ANITHA - Plan Plan (Free Text/Narrative):: 1. Hgb 12.4. 2. ASA 325mg BID per Dr. Lipscomb. Frequent mobility, TEDs. 3. ANITHA precautions. Outpatient therapy 4. Discharge to home today. The pt's case was discussed with Dr. Lipscomb.
--- NOTE | 2017-01-13 11:09 | PCM.DCSUM1 ---
Discharge Summary - Hospital Course Brief History: Stephen is a 66 yo male who underwent left ANITHA with Dr. Lipscomb on 01-11-2017. The procedure was completed under spinal anesthesia. The pt tolerated the procedure well and was admitted to the Medical-Surgical Unit. Medical management was provided by the Hospitalist service. The pt's Hospital course was uneventful. The pt's Hgb on POD#1 was 12.4. On POD#1, 325mg ASA BID was initiated for VTE prophylaxis. SCDs and TEDs were also ordered. A Mepilex dressing was placed at the incision site at the time of surgery and remained clean and dry. The pt participated in P.T. and O.T. and progressed well. He followed the ANITHA precautions. The pt was allowed to WBAT and used a FWW for mobility. On POD#1, the pt was deemed appropriate to discharge to home. - Discharge Data Discharge Date: 01/12/17 Discharge Disposition: Home, Self-Care 01 Condition: Good - Patient Summary/Data Consults: Consultations 01/11/17 06:46 Consult to Physician [CONS] Routine OT Evaluation and Treatment [CONS] Routine 01/11/17 06:50 PT Evaluation and Treatment [CONS] Routine - Patient Instructions Diet: Usual Diet as Tolerated Activity: Apply Ice, As Tolerated, Elevate Extremity, Full Weight Bearing Activity, Other: Total hip arthroplasty precautions. Driving: Do Not Drive Showering/Bathing: May Shower Wound/Incision Care: Keep Operative Site/Wound Site Clean and Dry, Do NOT Change Dressing Notify Provider of: Fever, Increased Pain, Swelling and Redness, Nausea and/or Vomiting Other/Special Instructions: Please get up and moving around every hour while awake. This helps to prevent blood clots. Please take 325mg aspirin twice daily - this also helps to prevent blood clots. The medication is being used for blood clot prevention and not for pain control, so please use the medication twice daily as directed. Please wear the ANA hose during the day and you may remove them at night. Please schedule for P.T. Complete the P.T. exercises and stretches that were instructed in the Hospital. Follow the total hip precautions that you learned in the Hospital. Please use the pain medication and muscle relaxant as needed. The medication may cause drowsiness and/or constipation. You could use a stool softener like docusate sodium or Colace 100mg twice daily and/or a laxative like Miralax daily for constipation. Contact your primary care provider for further instructions if you are constipated. Please schedule an appointment with your primary care provider for 'routine post-op care'. Use the incentive spirometer often. Please place ice to the hip often. Please elevate the limb to decrease swelling. Keep the Mepilex dressing in place until follow-up. Please call [phone] with questions or concerns. - Discharge Plan Prescriptions/Med Rec: Acetaminophen/oxyCODONE [Percocet 325-5 MG] 1 - 2 tab PO Q4H PRN #60 tablet PRN Reason: Pain Aspirin [Ecotrin] 325 mg PO BID #70 tab.ec Cyclobenzaprine [Flexeril] 10 mg PO TID PRN #40 tablet PRN Reason: Spasms Docusate Sodium [Colace] 100 mg PO BID #30 cap Famotidine [Pepcid] 20 mg PO Q12H #60 tablet Home Medications: Home Meds Acetaminophen [Tylenol] 325 mg PO ASDIRECTED PRN 01/08/17 [History] Losartan/Hydrochlorothiazide [Hyzaar 100-12.5 Tablet] 1 tab PO DAILY 01/08/17 [ History] Metoprolol Succinate [Toprol XL] 50 mg PO QAM 01/08/17 [History] Pravastatin Sodium [Pravachol] 20 mg PO DAILY 01/08/17 [History] Varenicline Tartrate [Chantix] 01/08/17 [History] amLODIPine [Norvasc] 10 mg PO DAILY 01/08/17 [History] Acetaminophen/oxyCODONE [Percocet 325-5 MG] 1 - 2 tab PO Q4H PRN #60 tablet 06/24 [Rx] Aspirin [Ecotrin] 325 mg PO BID #70 tab.ec 01/12/17 [Rx] Calcium Carbonate [Calcium] 1,200 mg PO DAILY 01/12/17 [History] Cholecalciferol (Vitamin D3) [Vitamin D] 1 tab PO DAILY 01/12/17 [History] Cyclobenzaprine [Flexeril] 10 mg PO TID PRN #40 tablet 01/12/17 [Rx] Docusate Sodium [Colace] 100 mg PO BID #30 cap 01/12/17 [Rx] Famotidine [Pepcid] 20 mg PO Q12H #60 tablet 01/12/17 [Rx] Patient Handouts: Smoking Cessation, Tips for Success, [id number], Cyclobenzaprine tablets, Acetaminophen; Oxycodone tablets, Total Hip Replacement , [id number], Hip Rehabilitation After Surgery, Aspirin, ASA oral tablets, Total Hip Replacement, Care After, [id number] Referrals: Sarah Latif PA-C [Physician Manager Bench] - (Please see Sarah Latif on Wednesday01/19/17 at 8:45 and on Wednesday11/26/16 8:45 AM.) Gonzalo Smith MD [Primary Care Provider] - - Patient Data Vitals - Most Recent: Last Vital Signs Temp 98.6 F 01/12/17 11:50 Pulse 63 01/12/17 08:44 Resp 20 01/12/17 11:50 BP 116/67 01/12/17 11:50 Pulse Ox 96 01/12/17 11:50 Weight - Most Recent: 193 lb 4.8 oz I&O - Last 24 hours: Intake & Output 01/12/17 01/13/17 01/13/17 22:59 06:59 14:59 Intake Total 320 Balance 320 Med Orders - Current: Current Medications Discontinued Medications Amlodipine Besylate (Norvasc) 10 mg PO DAILY [facility] Last Admin: 01/12/17 08:43 Dose: 10 mg Aspirin (Ecotrin) 325 mg PO BID [facility] Last Admin: 01/12/17 08:43 Dose: 325 mg Bisacodyl (Dulcolax) 5 mg PO DAILY PRN PRN Reason: Constipation Bupivacaine HCl (Marcaine 0.25%) Confirm Administered Dose 30 ml .ROUTE .STK- MED ONE Stop: 01/11/17 11:22 Last Admin: 01/11/17 15:14 Dose: 30 ml Calcium Carbonate/Glycine (Calcium Carbonate) 1,200 mg PO DAILY [facility] Last Admin: 01/12/17 11:52 Dose: 1,200 mg Cefazolin Sodium (Ancef) Confirm Administered Dose 2 gm .ROUTE .STK-MED ONE Stop: 01/11/17 10:25 Last Admin: 01/11/17 15:10 Dose: 2 gm Cefazolin Sodium (Ancef) Confirm Administered Dose 1 gm .ROUTE .STK-MED ONE Stop: 01/11/17 11:46 Cefazolin Sodium (Ancef) Confirm Administered Dose 2 gm .ROUTE .K-MED ONE Stop: 01/11/17 11:22 Cholecalciferol (Vitamin D3) 5,000 units PO DAILY [facility] Last Admin: 01/12/17 11:51 Dose: 5,000 units Morphine Sulfate 8 mg/Epinephrine HCl 0.3 mg/Cefuroxime Sodium 750 mg/Ketorolac Tromethamine 30 mg/Sodium Chloride 27.9 ml 0 mg .XX ONETIME ONE Stop: 01/11/17 06:46 Last Admin: 01/12/17 05:56 Dose: Not Given Cyclobenzaprine HCl (Flexeril) 10 mg PO TID PRN PRN Reason: Spasms Last Admin: 01/11/17 23:52 Dose: 10 mg Diphenhydramine HCl (Benadryl) 25 mg IVPUSH Q4H PRN PRN Reason: Nausea Diphenhydramine HCl (Benadryl) 25 mg IVPUSH Q6H PRN PRN Reason: pruritis Stop: 01/11/17 18:00 Diphenhydramine HCl (Benadryl) 25 mg IVPUSH Q6H PRN PRN Reason: Itching Last Admin: 01/12/17 06:58 Dose: 25 mg Docusate Sodium (Colace) 100 mg PO BID [facility] Last Admin: 01/12/17 08:45 Dose: 100 mg Ephedrine Sulfate (Ephedrine Sulfate) 5 mg IVPUSH ASDIRECTED PRN PRN Reason: Hypotension Stop: 01/11/17 18:00 Famotidine (Pepcid) 20 mg PO Q12H [facility] Last Admin: 01/12/17 08:44 Dose: 20 mg Fentanyl (Sublimaze) Confirm Administered Dose 100 mcg .ROUTE .STK-MED ONE Stop: 01/11/17 11:46 Fentanyl (Sublimaze) 50 mcg IVPUSH Q5M PRN PRN Reason: Pain Stop: 01/11/17 14:14 Hydrochlorothiazide (Hydrochlorothiazide) 12.5 mg PO DAILY [facility] Last Admin: 01/12/17 08:44 Dose: 12.5 mg Hydromorphone HCl (Dilaudid) 0.5 mg IVPUSH Q15M PRN PRN Reason: severe pain Stop: 01/11/17 14:14 Lactated Ringer's (Ringers, Lactated) 1,000 mls @ 125 mls/hr IV ASDIRECTED [facility] Stop: 01/11/17 18:00 Last Admin: 01/11/17 11:05 Dose: 125 mls/hr Cefazolin Sodium/Dextrose 2 gm (/ Premix) 50 mls @ 100 mls/hr IV Q8H [facility] Stop: 01/12/17 10:59 Last Admin: 01/12/17 10:14 Dose: 100 mls/hr Lidocaine HCl (Xylocaine-Mpf 1%) Confirm Administered Dose 10 mls @ as directed .ROUTE .STK-MED ONE Stop: 01/11/17 11:46 Lactated Ringer's (Ringers, Lactated) Confirm Administered Dose 2,000 mls @ as directed .ROUTE .STK-MED ONE Stop: 01/11/17 11:46 Phenylephrine HCl 1 mg/ Sodium (Chloride) 10.1 mls @ 1 mls/sec IV TITRATE [facility] PRN Reason: Protocol Stop: 01/11/17 23:00 Iodine (Iodine 2% Mild Tincture) Confirm Administered Dose 30 ml .ROUTE .STK- MED ONE Stop: 01/11/17 11:22 Last Admin: 01/11/17 15:08 Dose: 18 ml Ketamine HCl (Ketalar) Confirm Administered Dose 500 mg .ROUTE .STK-MED ONE Stop: 01/11/17 11:47 Ketorolac Tromethamine (Toradol) 15 mg IVPUSH Q6H PRN PRN Reason: Pain Lidocaine/Sodium Bicarbonate (Buffered Lidocaine 1% In Ns 8.4%) 0.25 ml IV ONETIME PRN PRN Reason: Prior to IV Start Stop: 01/11/17 18:00 Last Admin: 01/11/17 11:05 Dose: 0.25 ml Losartan Potassium (Cozaar) 100 mg PO DAILY [facility] Last Admin: 01/12/17 08:44 Dose: 100 mg Magnesium Hydroxide (Milk Of Magnesia) 30 ml PO BID PRN PRN Reason: Constipation Metoprolol Succ[facility] ([facility]l) [facility] [place] Last Admin: 01/12/17 08:44 Dose: 50 mg Midazolam HCl (Versed 1 Mg/Ml) Confirm Administered Dose 2 mg .ROUTE .STK-MED ONE Stop: 01/11/17 11:47 Midazolam HCl (Versed 1 Mg/Ml) Confirm Administered Dose 2 mg .ROUTE .STK-MED ONE Stop: 01/11/17 15:26 Morphine Sulfate (Morphine) 2 mg IVPUSH Q2H PRN PRN Reason: Breakthrough Pain Morphine Sulfate (Duramorph Pf) Confirm Administered Dose 10 mg .ROUTE .STK-MED ONE Stop: 01/11/17 11:49 Naloxone HCl (Narcan) 0.1 mg IVPUSH Q5M PRN PRN Reason: Oversedation Ondansetron HCl (Zofran) 4 mg IVPUSH Q6H PRN PRN Reason: Nausea/Vomiting Ondansetron HCl (Zofran) Confirm Administered Dose 4 mg .ROUTE .STK-MED ONE Stop: 01/11/17 11:46 Ondansetron HCl (Zofran) 4 mg IVPUSH ONETIME PRN PRN Reason: Nausea/Vomiting Stop: 01/11/17 23:00 Oxycodone/Acetaminophen (Percocet 325-5 Mg) 1 - 2 tab PO Q4H PRN PRN Reason: Pain Last Admin: 01/12/17 15:29 Dose: 2 tab Phenylephrine HCl (Phenylephrine In Ns 100 Mcg/Ml) Confirm Administered Dose 1 mg .ROUTE .STK-MED ONE Stop: 01/11/17 11:46 Propofol (Diprivan 20 Ml) Confirm Administered Dose 400 mg .ROUTE .STK-MED ONE Stop: 01/11/17 11:46 Propofol (Diprivan 20 Ml) Confirm Administered Dose 200 mg .ROUTE .STK-MED ONE Stop: 01/11/17 14:58 Scopolamine (Transderm-Scop) 1.5 mg TRDERM ONETIME ONE Stop: 01/11/17 12:37 Last Admin: 01/11/17 12:59 Dose: Not Given Senna (Senna) 8.6 mg PO BID PRN PRN Reason: Constipation Simvastatin (Zocor) 10 mg PO DAILY [facility] Last Admin: 01/12/17 08:44 Dose: 10 mg Simvastatin (Zocor) 10 mg PO BEDTIME [facility] Sodium Chloride (Saline Flush) 10 ml FLUSH ASDIRECTED PRN PRN Reason: Keep Vein Open Stop: 01/11/17 18:00 Tranexamic Acid (Cyklokapron) Confirm Administered Dose 1,000 mg .ROUTE .STK- MED ONE Stop: 01/11/17 11:21 Last Admin: 01/11/17 15:15 Dose: 1,000 mg Vancomycin HCl (Vancomycin) Confirm Administered Dose 1 gm .ROUTE .STK-MED ONE Stop: 01/11/17 11:22 Last Admin: 01/11/17 15:15 Dose: 1 gm *Q Meaningful Use (DIS) - VTE *Q VTE Criteria *Q: - Stroke *Q Stroke Criteria *Q: - AMI *Q AMI Criteria *Q:
--- NOTE | 2017-01-18 15:21 | PCM.OPNOTE ---
- General Post-Op/Procedure Note Date of Surgery/Procedure: 01/11/17 Operative Procedure(s): left total hip arthroplasty Pre Op Diagnosis: left hip osteoarthrosis Post-Op Diagnosis: Same Anesthesia Technique: Local, MAC, Spinal Primary Surgeon: Nick Lipscomb Anesthesia Provider: Lucy Corley Digital Cartographic Technician: Sarah Latif Digital Cartographic Technician: Mary Ann Almodovar EBL in mLs: 150 Complications: None Condition: Good
--- NOTE | 2017-01-18 15:51 | OR ---
DATE OF OPERATION: 01/11/2017 SURGEON: Nick Lipscomb MD OPERATION PERFORMED: Left total hip arthroplasty. PREOPERATIVE DIAGNOSIS: Left hip osteoarthrosis. POSTOPERATIVE DIAGNOSIS: Left hip osteoarthrosis. ANESTHESIA: Local MAC with spinal. ANESTHESIA PROVIDER: Lucy Corley CRNA. ASSISTANTS: Sarah Latif PA-C and Mary Ann Almodovar LPN. ESTIMATED BLOOD LOSS: 150 mL. COMPLICATIONS: None. CONDITION: Stable. IMPLANT: 1. [place] size 7 Accolate II stem. 2. Mei size 36 mm +0 ceramic head. 3. A 60 mm [place] Tritanium solid acetabular cup. DESCRIPTION OF PROCEDURE: The patient was identified in the preoperative holding area. Proper site was marked and identified by the surgeon. The patient was taken back to the operating theater where after adequate anesthesia, the patient was placed in a right lateral decubitus position. Axillary roll was placed along with all bony prominences well padded. Pegs were then placed and well padded. The patient's gluteal fold was parallel to the floor. The left hip was then sterilely prepped and draped in the usual sterile fashion. OR time-out was performed. The patient received 2 g IV Ancef. Standard posterior incision was made and centered over the greater trochanter. IT band and gluteal fascia were then incised along the incisional length. Charnley retractor was then placed. Short external rotators along with the piriformis tendon were identified. They were then taken down along with the capsulotomy down to the level of lesser trochanter. The hip was then dislocated. Neck cut guide was then placed. The neck cut was completed and found to be adequate. The anterior, posterior, and inferior acetabular retractors were then placed. Pulvinar removed along with any labrum. Starting with a 52 reamer, I was able to ream up to 60 which had good cancellous bone fixation. At this time, 60 mm Tritanium acetabular cup was impacted into place in roughly 40 degrees of abduction and 20 to 30 degrees of anteversion. The 36 mm 10 degree elevated liner was then impacted into place. Attention was turned to the femur. Box chisel was used out laterally. Starter awl was placed down the canal. Starting with the 0 broach, I was able to broach up to a size 7 which was found to be rotationally and vertically stable. This was trialed with 127-degree neck angle with a 36+ 0 head. There was found to have adequate mandaeism of leg length and was stable throughout range of motion. At this time, the size 7 Accolate II stem was impacted into place along with a 36+ 0 head. Hip was then relocated. Two #5 Ethibond sutures were used for closure of short external rotators and capsule. Next, 1 L dilute Betadine solution along with 3 L of pulse lavage irrigation with Ancef were irrigated through the hip. Topical tranexamic acid was placed along with vancomycin powder. At this time, a #2 barbed suture was used for closure of the IT band and gluteal fascia, 2-0 Vicryl was used subcutaneously and Prineo was used for the skin. The patient tolerated the procedure well and was sent to PACU in stable condition. TAYLOR /[id number]
== END 2017-01-12 15:45 | disposition home or self-care (01) | DRG 470 ==
LOC: JD.MS 10:29
PROVIDERS: ADMIT Orthopaedic Surgery; ATTEND Orthopaedic Surgery
PROC: 0SRB049 Replacement of Left Hip Joint with Ceramic on Polyethylene Synthetic Substitute, Cemented, Open Approach (ICD-10-PCS; principal; 2017-01-11)
DX: M16.0 Bilateral primary osteoarthritis of hip (principal); I10 Essential (primary) hypertension; F17.210 Nicotine dependence, cigarettes, uncomplicated; Z79.899 Other long term (current) drug therapy; Z88.2 Allergy status to sulfonamides; E78.5 Hyperlipidemia, unspecified; H54.7 Unspecified visual loss; F41.9 Anxiety disorder, unspecified; F32.89 Other specified depressive episodes; L29.8 Other pruritus
CPT/HCPCS: 01214; 36415; 73501-26-LT; 73501-LT; 80053; 85027; 86850; 86900; 86901; 94762; 97110-GP; 97116-GP; 97162-GP; 97166-GO; 97530-GP; 97535-GO; A9270-GY; C1776; J0171; J0690; J0697; J1200; J1885; J2250; J2270; J2405; J2704; J3010; J3370; J3490; J7120